=== PATIENT | male | born 1930 | race Caucasian/White ===

== ENCOUNTER 2017-01-10 13:15 | Emergency (ER) | payer MEDICARE, OTHER ==
[2017-01-10 13:30] VITALS: BP 159/83; PULSE 66; RESP 20; TEMP 98.3; O2SAT 97
[2017-01-10] MEDS ORDERED: ASPI81CH37 CHEW (13:41)
--- NOTE | 2017-01-10 13:50 | PD ---
HPI Chief Complaint: Back/ Neck Pain or Injury Time Seen by Provider: 13:43 Travel History International Travel<30 days: No Contact w/Intl Traveler<30days: No Traveled to known affect area: No History of Present Illness HPI Patient is a jovial 86-year-old [employer] who presents the emergency department with complaint of back pain. Daughter is here who provides additional history. Patient has a history of chronic back pain. They were out running several errands, signing him up for golf lessons, and then went grocery shopping. They were at the grocery store walking around for approximately 40 minutes and patient stated that his back began to bother him. This is left lower back pain. Patient states that this is similar to his chronic pain but was worse than normal. Bobbin Drier bystander thought the patient was leaning to the side and therefore recommended he come to the emergency department there was never any evidence of focal weakness, words slurring, etc. Patient states that now his back pain is resolved and he is feeling fairly asymptomatic. He walks with cane at baseline and was able to walk into the emergency department without any difficulty. [facility] Past Medical History Medical History: Denies Significant Hx Tetanus Vaccination: > 5 Years Influenza Vaccination: No Past Surgical History Abdominal Surgery: Yes (Hernias) Cardiac Surgery: Yes (Pacemaker ) Eye Surgery: Yes (Cataract Rt. eye ) Joint Replacement: Yes (Lt. knee ) Social History Alcohol Use: Yes (Occ.) Tobacco Use: No Substance Use: No Allergies-Medications (Allergen,Severity, Reaction): Coded Allergies: Crab (Verified Allergy, Unknown, 01/10/17) Reported Meds & Prescriptions Reported Meds & Active Scripts Active Reported Aspirin Low Dose (Aspirin) 81 Mg Chew 81 Mg CHEW DAILY Review of Systems Except as stated in HPI: all other systems reviewed are Neg Physical Exam Narrative GENERAL: Pleasant elderly male in no acute distress SKIN: Focused skin assessment warm/dry. HEAD: Normocephalic. EYES: No scleral icterus. No injection or drainage. ENT: Mucous membranes pink and moist. NECK: Supple without midline tenderness to palpation CARDIOVASCULAR: Regular rate and rhythm. RESPIRATORY: No accessory muscle use. MUSCULOSKELETAL: No midline tenderness to palpation of thoracic or lumbar spine. Scoliosis. Patient has tenderness palpation over the left lumbar muscles and slightly within the left SI joint. 5 out of 5 strength in the bilateral upper and lower extremities. Good distal sensation, capillary refill , reflexes. Negative straight leg raise. NEUROLOGICAL: Awake and alert. Normal gait with cane. Normal speech. PSYCHIATRIC: Appropriate mood and affect; insight and judgment normal. Data Data Last Documented VS Vital Signs Date Time Temp Pulse Resp B/P Pulse Ox O2 Delivery O2 Flow Rate FiO2 01/10/17 13:30 98.3 66 20 159/83 97 MDM Medical Decision Making Medical Screen Exam Complete: Yes Emergency Medical Condition: Yes Medical Record Reviewed: Yes Differential Diagnosis Pleasant 86-year-old male with history of chronic back pain here with complaint of back pain after running several errands consecutively this morning. Patient is essentially asymptomatic at this time and able to ambulate independently in the emergency department with his cane without any difficulties. I suspect that he likely overdid things causing a strain, acute exacerbation of his chronic back pain. Patient is feeling well at this time. He does not have any midline tenderness to palpation, red flags or warning signs to warrant any imaging. Narrative Course Patient and daughter were reassured, conservative management and discharged home. Diagnosis Primary Impression: Acute exacerbation of chronic low back pain Referrals: Primary Care Physician as needed Additional Instructions: Tylenol, Motrin, Aleve as needed for pain. Med/Other Pt SpecificInfo: No Change to Meds Disposition: 01 DISCHARGE HOME Condition: Stable Leena Epps MD Jan 10, 2017 13:50
== END 2017-01-10 14:11 | disposition home or self-care (01) ==
LOC: PHED 13:15
DX: M54.5 Low back pain (principal); G89.29 Other chronic pain
CPT/HCPCS: 99282